=== PATIENT | female | born 1970 | race Caucasian/White ===

== ENCOUNTER 2024-03-15 11:43 | Outpatient (CLI) | payer OTHER, BC, SELFPAY ==
--- NOTE | ~2024-03-15 | US_ITS ---
Limited Abdominal Sonogram: Real-time sonographic imaging of the right upper quadrant was performed. Clinical History: Right upper quadrant pain Findings: The liver appears echogenic, with no evidence of bile duct dilatation. Probable focal fatt y sparing in the left hepatic lobe, most likely a hypoechoic mass measuring 1.9 cm in diameter. Main portal vein demonstrates normal direction of flow. The gallbladder is well distended, and appears nor mal with no evidence of gallstone or wall thickening. The common bile duct measures 4 mm. The visual ized pancreas, aorta, and IVC are unremarkable. Impression: Diffuse fatty infiltration of liver. Suspected focal fatty sparing in the left hepatic lobe, less lik loree mass. Consider follow-up MR to further evaluate/confirm. Reviewed, dictated and finalized at [facility]. Impression: Diffuse fatty infiltration of liver. Suspected focal fatty sparing in the left hepatic lobe, less likely mass. Consider follow-up MR to further evaluate/confi rm.
== END 2024-03-15 11:44 ==
LOC: GOSHIMG 11:45
PROVIDERS: PCP Internal Medicine; Visit Provider Clinical Nurse Specialist
DX: R10.11 Right upper quadrant pain (principal); K76.0 Fatty (change of) liver, not elsewhere classified
CPT/HCPCS: 76705

== ENCOUNTER 2024-03-22 07:44 | Outpatient (CLI) | payer OTHER, BC, SELFPAY ==
--- NOTE | ~2024-03-22 | MR_ITS ---
MRI of the abdomen: Clinical indication: Fatty sparing versus hepatic mass. Technique: Coronal SSFSE ARC, WATER:coronal LAVA-FLEX, Coronal 2D FIESTA FatSat, Axial SSFSE BH ARC, Axial 3D DualEcho BH, Axial SSFSE-IR, Axial DWI b=500, Axial 2D FIESTA FatSat, pre and dynamic postco ntrast Axial LAVA ARC, postcontrast Coronal In and Opposed phase LAVA FLEX. Following intravenous administration of 20 cc MultiHance gadolinium, T1-weighted fat-sat imaging was performed in the axial and coronal planes. Correlation made with ultrasound dated 03/15/2024 Findings: Gallbladder unremarkable. The common bile duct is normal in course and caliber. No filling defects are seen within the CBD. No evidence of intrahepatic biliary ductal dilatation. The pancreati c duct is normal in size. There is mild diffuse signal drop off in the liver on out of phase images relative to in phase images , compatible diffuse fatty infiltration. No focal hepatic mass identified. Findings on prior ultrasou nd therefore are most consistent with focal fatty sparing. Spleen, pancreas, adrenals, kidneys appear normal. The aorta and the paraaortic regions appear normal. No abnormal postcontrast enhancement. Impression: Diffuse fatty infiltration of the liver. No hepatic mass seen. Findings on prior ultrasound therefore most likely represent focal fatty sparing. Reviewed, dictated and finalized at [facility]. Impression: Diffuse fatty infiltration of the liver. No hepatic mass seen. Findings on prio r ultrasound therefore most likely represent focal fatty sparing.
== END 2024-03-22 07:45 | disposition home or self-care (01) ==
PROVIDERS: PCP Internal Medicine; Visit Provider Clinical Nurse Specialist
DX: R93.5 Abnormal findings on diagnostic imaging of other abdominal regions, including retroperitoneum (principal); K76.0 Fatty (change of) liver, not elsewhere classified
CPT/HCPCS: 74183; A9577

== ENCOUNTER 2025-03-25 08:45 | Outpatient (CLI) | payer OTHER, BC, SELFPAY ==
--- NOTE | ~2025-03-25 | US_ITS ---
RIGHT UPPER QUADRANT ABDOMINAL ULTRASOUND (Doppler ultrasound interrogation techniques used as needed for this exam.) Ordering provider: GAIL GarciaP-C History: . K76.0 - Fatty (change of) liver, not elsewhere classified . Comparison: None. FINDINGS: PANCREAS: Normal echotexture and size. PORTAL VEIN: Hepatopedal flow demonstrated. LIVER: Normal size and echotexture. No focal hepatic lesions or perihepatic fluid collections are rain ntified. BILIARY DUCTS: No intra or extrahepatic biliary dilation. Common bile duct measures 4 mm in diameter which is normal for patient's age. GALLBLADDER: Normal. No stones, sludge, gallbladder wall thickening or pericholecystic fluid. Negati ve sonographic Srivastava's sign. FREE FLUID: None visualized within the upper abdomen. IMPRESSION: normal right upper quadrant ultrasound. Reviewed, dictated and finalized at [facility].
== END 2025-03-25 08:46 | disposition home or self-care (01) ==
LOC: GOSHIMG 08:45
PROVIDERS: PCP Clinical Nurse Specialist; Visit Provider Clinical Nurse Specialist
DX: K76.0 Fatty (change of) liver, not elsewhere classified (principal)
CPT/HCPCS: 76705